=== PATIENT | male | born 1955 | race Caucasian/White ===

== ENCOUNTER 2024-04-12 23:59 | Inpatient (IN) | payer BC, MEDICARE, SELFPAY ==
[2024-04-12 19:29] VITALS: BP 99/48
[2024-04-12 19:48] LABS: % Basophils 0.2 % (0-2); % Immature Granulocytes 0.6 % (0-0.5); % Lymphocytes 5.7 % (20.5-51.1); % Monocytes 9.2 % (1.7-9.3); % Neutrophils 84.3 % (42.2-75.2); Absolute Immature Granulocytes 0.1 10^3/uL (0-0.05); Absolute Lymphocytes 0.6 10^3/uL (1.2-3.4); Absolute Monocytes 0.9 10^3/uL (0.1-0.6); Absolute Neutrophils 8.4 10^3/uL (1.4-6.5); Hematocrit 44.2 % (39.0-52.0); Hemoglobin 15.3 g/dL (13.0-18.0); Mean Corp Hgb Conc. 34.6 g/dL (33.0-37.0); Mean Corpuscular Hgb 30.9 pg (27.0-31.0); Mean Corpuscular Volume 89.3 fL (80.0-94.0); Mean Platelet Volume 12.6 fL (7.4-10.4); Nucleated Red Blood Cells % 0 % (-); Platelet Count 153 10^3/uL (130-400); Red Blood Cell Count 4.95 10^6/uL (4.70-6.10); Red Cell Dist. Width 13.7 % (11.5-14.5)
[2024-04-12 20:12] LABS: ALT (SGPT) 37 U/L (0-50); AST (SGOT) 65 U/L (17-59); Albumin 3.3 g/dl (3.5-5.0); Alkaline Phosphatase 101 U/L (38-126); Blood Urea Nitrogen 26 mg/dl (9-20); Calcium 8.6 mg/dl (8.4-10.2); Carbon Dioxide 26 mmol/L (22-30); Chloride 102 mmol/L (98-107); Glucose 118 mg/dl (70-99); Potassium 3.7 mmol/L (3.5-5.1); Sodium 138 mmol/L (135-145); Total Protein 5.9 g/dl (6.3-8.2); eGFR 54.41
[2024-04-12 20:13] LABS: COVID-19 Antigen Negative (Negative)
--- NOTE | 2024-04-12 22:26 | ED.GENMED ---
History of Present Illness
General
Chief Complaint: Change in Mental Status
Source: patient
Exam Limitations: none
Time Seen by Provider: 04/12/24 22:10
History of Present Illness
History of Present Illness:
This is a 69 year old male that comes in with c/o fatigue. States that on Friday he played golf and then went [facility] with his . States that he felt lightheaded and he didn't drink. States that on Friday, Friday and Friday he slept
all day. States that he is not eating. and he just didn't want to get OOB. States that he was sweating when he was in bed and doesn't know if he had a fever. States that he has a headache with slight Dizziness. Denies any fever, chills, chest pain,
SOB, abd pain, nausea, vomiting, diarrhea, urinary burning.
Past History
Past History
ED Past Medical History: Cancer (Prostate CA), Hypercholesterolemia and Other (Salmeron's Palsey, )
ED Past Surgical History: Urological (Prostatectomy)
Social History
Tobacco: Smoker
Alcohol: None
Personal:
Living: with family
Review of Systems
Review of Systems
All Other Systems: ROS reviewed and negative except as documented in HPI and ROS
Constitutional: Reports night sweats; Denies fever or chills
EENT: Reports no symptoms
Respiratory: Reports no symptoms; Denies cough or trouble breathing
Cardiac: Reports no symptoms; Denies chest pain
ABD/GI: Reports no symptoms; Denies abdominal pain, nausea, vomiting or diarrhea
: Reports no symptoms; Denies dysuria, frequency or urgency
Musculoskeletal: Reports no symptoms
Skin: Reports no symptoms
Neurological: Reports dizzy (Slight) and headache
Psychiatric: Reports no symptoms
Phy Exam
General Physical Exam
General Presentation: well appearing and no apparent distress
General age: appears stated age
General Skin: warm and dry
General Habitus: normal
General Mental: alert
General Hydration: dry mucous membranes
ENT Exam
ENT Exam: TM's normal, pharynx normal and neck supple
Eye Exam
Eye Exam: EOMI
Cardiovascular Exam
Cardiovascular Exam: regular rate/rhythm, no edema and normal peripheral pulses
Pulmonary Exam
Pulmonary Exam: lungs clear, no respiratory distress, no rales, chest non tender, no crackles, no rhonchi, no wheezing and no cough
Gastrointestinal Exam
Gastrointestinal Exam: normal bowel sounds, non tender, soft, no organomegaly, no pulsatile mass and non distended
Musculoskeletal Exam
Musculoskeletal Exam: full ROM and no edema
Skin Exam
Skin Exam: normal color, warm/dry, no rash and no petechia
Psychiatric Exam
Psychiatric Exam: normal mood/affect
Course
Orders/Labs/Results
Orders:
Orders
04/12/24 19:34
COVID-19 Antigen Urgent
Source: Nasal Swab
Complete Blood Count/With Diff Urgent
Comprehensive Metabolic Panel Urgent
Influenza A+B Rapid Molecular Urgent
JODI Source: Nasal Swab
Specimen Description:
04/12/24 22:25
CT Head W/o Iv Contrast Urgent
Comment:
Reason For Exam: Headache, dizziness
Urinalysis Reflex To Culture Urgent
CR Chest - 2 Views Urgent
Comment:
Reason For Exam: fatigue, lightheaded
04/12/24 22:26
0.9% Sodium Chloride 1000 ml [Nss] 1,000 ml IV BOLUS
Acetaminophen [Tylenol] 1,000 mg PO NOW STA
Ketorolac [Toradol] 15 mg IV NOW STA
Abnormal Lab Results
04/12/24
19:34
MPV 12.6 H fL
(7.4-10.4)
Abs Immat Gran (auto) 0.1 H 10^3/uL
(0-0.05)
Absolute Neuts (auto) 8.4 H 10^3/uL
(1.4-6.5)
Absolute Lymphs (auto) 0.6 L 10^3/uL
(1.2-3.4)
Absolute Monos (auto) 0.9 H 10^3/uL
(0.1-0.6)
Immature Gran % 0.6 H %
(0-0.5)
Neutrophils % 84.3 H %
(42.2-75.2)
Lymphocytes % 5.7 L %
(20.5-51.1)
BUN 26 H mg/dl
(9-20)
Creatinine 1.4 H mg/dL
(0.7-1.3)
Glucose 118 H mg/dl
(70-99)
AST 65 H U/L
(17-59)
Total Protein 5.9 L g/dl
(6.3-8.2)
Albumin 3.3 L g/dl
(3.5-5.0)
04/12/24 19:34
04/12/24 19:34
Dehydration, Hyperglycemia. AST mildly elevated. Total protein slightly low. Albumin slighlt low. COVID and Influenza negative.
Vital Signs
Initial and Last Documented VS:
Initial Vital Signs
Temp Pulse Resp
98.4 F 80 18
04/12/24 19:24 04/12/24 19:24 04/12/24 19:24
Last Documented Vital Signs
Temp Pulse Resp BP
98.4 F 80 18 99/48
04/12/24 19:24 04/12/24 19:24 04/12/24 19:24 04/12/24 19:29
MDM/Problems Addressed
Differential Diagnosis Includes:
Viral syndrome. UTI,
MDM/Problems Addressed:
This is a 69 year old male that comes in with c/o fatigue. States that he has slept for three days and did not fell like getting out of bed. States that he has not had an appetite and has a headache with slight Dizziness.
Will check labs,. CT head. Give IV fluids, urine and medicate for headache pain.
Back into see patient. Patient was hypoxic at 89% on room air. O2 started at 2 liters. Explained to patient that he has a severe right upper lobe Pneumonia. Will start patient on antibiotics and admit. Hospitalist notified,
Chronic conditions affecting care:
NA
Acute Exacerbation and/or Progression of Chronic Illness:
NA
*Radiology
Radiology exam reviewed: radiology read reviewed (CT head-There are no focal or acute intracranial abnormalities. There is mild cortical and cerebellar atrophy. Chest-Severe right upper lobe Pneumonia. )
*Pulse Oximetry
Patient hypoxic: no (95% on room air)
*Aquatic Performer Interpretation
Rate: normal
Heart Rate: 91
Rhythm: sinus and PAC's
*Critical Care Note
Total Time (30-74mins, 75-104mins- exclusive of procedures): Not Applicable
ED Attending Note
-
Portions of this chart may have been created with voice recognition software.� Occasional wrong word or��sound alike� substitutions may have occurred due to the inherent limitations of voice recognition software.
Discharge Plan
Departure
Patient Disposition: Admit
Date of Disposition: 04/12/24
Time of Disposition: 23:33
Admit to: Telemetry
Presentation/result/management discussed w/ accepting MD/DO: Hospitalist
Patient with high blood pressure during this ER visit?: No
Condition: Good
Covid-19: Negative COVID-19
Discharge Problem:
Right upper lobe pneumonia
Referrals:
Marci Engle CRNP [Family Provider] -
Interventions
Interventions:
*Risk Screen - Suicide Last Done: 04/12/24 19:24
*General Assessment Last Done: 04/12/24 19:24
*Neglect/Abuse Screening Last Done: 04/12/24 19:24
*ED COVID-19 Vaccine History Last Done: 04/12/24 19:24
Discharge Date and Time
Print Language: [place]THER[place] IRISH
[2024-04-12] MEDS: TYLENOL 1000 MG PO (23:55)
[2024-04-12] MEDS: NSS 1000 IV (23:56)
[2024-04-12] MEDS: TORADOL 15 MG IV (23:57)
[2024-04-12] MEDS: ZITHROMAX INFUSION 250 IV (23:57)
[2024-04-12] MEDS: ROCEPHIN 1000 MG IV (23:57)
[2024-04-13] VITALS (11 sets, daily range): BP systolic 90–141; BP diastolic 56–92; PULSE 81–89; O2SAT 94; BMI 23.8; BMI 27.1
--- NOTE | 2024-04-13 00:01 | HPS.HSE ---
Family Physician
-
Family Physician: Marci Engle
Chief Complaint
-
Weakness
History of Present Illness
Patient is a 69y M with PMH significant for prostate cancer and HTN who presents to ED complaining of marked fatigue. Patient states his symptoms started on Friday evening with lightheadedness. He went to bed and slept for much of the day on
Friday and Friday. Patient reports headache, malaise, poor appetite and continued lightheadedness. He was very fatigued and somewhat unsteady on his feet while going to the bathroom. He denies any fall ors syncope. Minimal, non-productive
cough. No known sick contacts.
Patient presented to the ED this evening and was noted to be hypoxemic (89% on room air per verbal ED report).
CXR showed RUL pneumonia.
Medical History
Past Medical History
Past Medical History: Reports Other
Additional Past Medical History:
Prostate Cancer s/p Surgery, XRT and Hormone Therapy
Hypertension
Past Surgical History: Reports Other
Additional Past Surgical History:
Prostatectomy
Lipoma Excision
Hernia repair
R Achilles Repair
Social History
Tobacco: Non-smoker
Alcohol: None
Drug: None
Family History
Family History: Not pertinent
Allergies / Home Medications
Allergies reflects when Allergies were last updated in [employer].
Home Medications with original date entered in [employer]
Allergy/Medication List:
Allergies
Allergy/AdvReac Type Severity Reaction Status Date / Time
NKA - No Known Allergies Allergy Uncoded 10/29/07 17:56
Home Medications
abiraterone 250 mg tablet 1,000 mg PO DAILY 04/12/24
amlodipine 5 mg tablet 5 mg PO DAILY 04/12/24
atorvastatin 40 mg tablet 40 mg PO HS 04/12/24
calcium carbonate 1,200 mg PO DAILY 04/12/24
magnesium oxide 400 mg PO DAILY 04/12/24
prednisone 5 mg tablet 5 mg PO DAILY 04/12/24
Review of Systems
-
History Source: Patient
A 12 point ROS was completed and negative except as noted: Yes
Constitutional: Reports Fatigue; Denies Fever or Chills
EENT: Reports Sore Throat
Respiratory: Reports Cough (mild) and Trouble Breathing (with activity)
Cardiac: Denies Chest Pain, Diaphoresis, Palpitations or Syncope
Abdomen/GI: Reports Anorexia; Denies Abdominal Pain, Nausea, Vomiting or Diarrhea
: Denies Dysuria or Frequency
Musculoskeletal: Denies Joint Pain or Edema
Neurological: Reports Headache
Psych: Denies Depression or Anxiety
Physical Exam
Vital Signs
Vital Signs
Temp Pulse Resp BP
98.4 F 80 18 99/48
04/12/24 19:24 04/12/24 19:24 04/12/24 19:24 04/12/24 19:29
Physical Exam
General: Other (69y M in no acute distress.)
HEENT: Moist mucous membranes and PERRLA
Respiratory: Other (Rhonchi and Rales over the RUL. Otherwise clear.)
Cardiac: S1/S2 and Irregular Rhythm; No Murmur
GI: Soft, Non Tender, Non Distended and Normal Bowel Sounds
Musculoskeletal: No Clubbing, No Cyanosis and No Edema
Neuro: AO x 3
Laboratory Results
-
04/12/24 19:34
04/12/24 19:34
Laboratory Results
Total Bilirubin 1.0 mg/dl (0.2-1.3) 04/12/24 19:34
AST 65 U/L (17-59) H 04/12/24 19:34
ALT 37 U/L (0-50) 04/12/24 19:34
Alkaline Phosphatase 101 U/L (38-126) 04/12/24 19:34
Impression/Plan
-
A/P: Patient is a 69y M with PMH significant for prostate cancer and hypertension who presents to ED complaining of overwhelming fatigue and weakness x 3 days.
RUL Pneumonia
Acute Hypoxemic Respiratory Insufficiency secondary to the above
- Admit for further evaluation and treatment.
- SpO2 on room air reported at 89% in the ED.
- Dense RUL opacity seen on CXR.
- COVID and influenza negative in the ED.
- Abx with ceftriaxone and doxycycline.
- Supportive care with IVFs, mucolytics, etc.
- Follow for clinical improvement.
- Follow for any new / worsening symptoms.
- Wean off of O2 as able.
DAAYNA v CKD
- SCr = 1.4 with no prior value available for comparison.
- Suspect DAYANA in setting of acute infection / volume contraction.
- IVFs overnight.
- Follow for changes in SCr over the next 48 hours to establish baseline.
Benign Hypertension
- Relatively hypotensive in the ED.
- Hold amlodipine acutely.
- Follow for changes with IVFs / treatment of pneumonia.
Prostate Cancer
- Continue abiraterone and prednisone without changes.
- Follow-up with physicians at [facility] as planned.
DVT Prophylaxis: Lovenox
Code Status: Full
[2024-04-13] MEDS: NSS 1000 IV ×4 (01:22→20:17)
[2024-04-13 06:06] LABS: Hematocrit 38.9 % (39.0-52.0); Hemoglobin 13.5 g/dL (13.0-18.0); Mean Corp Hgb Conc. 34.7 g/dL (33.0-37.0); Mean Corpuscular Hgb 30.3 pg (27.0-31.0); Mean Corpuscular Volume 87.2 fL (80.0-94.0); Mean Platelet Volume 13.1 fL (7.4-10.4); Platelet Count 146 10^3/uL (130-400); Red Blood Cell Count 4.46 10^6/uL (4.70-6.10); Red Cell Dist. Width 13.9 % (11.5-14.5); White Blood Cell Count 9.8 10^3/uL (4.8-10.8)
[2024-04-13 06:26] LABS: AST (SGOT) 63 U/L (17-59); Albumin 2.7 g/dl (3.5-5.0); Alkaline Phosphatase 85 U/L (38-126); Blood Urea Nitrogen 35 mg/dl (9-20); Calcium 7.9 mg/dl (8.4-10.2); Carbon Dioxide 24 mmol/L (22-30); Chloride 107 mmol/L (98-107); Estimated Creatinine Clearance 51 ml/min; Glucose 99 mg/dl (70-99); Potassium 3.5 mmol/L (3.5-5.1); Sodium 140 mmol/L (135-145); Total Bilirubin 0.5 mg/dl (0.2-1.3); eGFR 54.41
[2024-04-13 06:36] LABS: ALT (SGPT) 38 U/L (0-50); Magnesium 2.3 mg/dl (1.6-2.3)
[2024-04-13] MEDS: PROTONIX 40 MG PO (07:51)
[2024-04-13] MEDS: VIBRAMYCIN 100 MG PO ×2 (07:51→20:17)
[2024-04-13] MEDS: MUCINEX 1200 MG PO ×2 (07:51→20:17)
[2024-04-13] MEDS: DELTASONE 5 MG PO (08:00)
--- NOTE | 2024-04-13 08:54 | CM ---
Patient seen at bedside with physician. Patient stated that he lived with his in a 2 story home. Patient has no home DME and has no home O2. 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 Patient PCP is Dr. Engle and he uses the [facility] in [place].
Patient stated that he plans for discharge home with and possible VN pending physician assessment. CM will continue to follow for discharge planning needs.
Plan; home with no needs vs home with VN.
--- NOTE | 2024-04-13 09:03 | W.PN.HOSP.TC ---
Today's Communication/Plan
-
cont ABX/IVF
wean O2 to off
Assessment / Plan
Assessment / Plan
pt is a 69 year old male
Acute Hypoxemic Respiratory Insufficiency due to acute RUL PNA--89% on room air--Covid/flu negative--likely CAP--cont rocephin/doxy--follow CXR--consider pulm consult if no improvement--wean O2 to off
DAYANA vs CKD--SCr = 1.4 with no prior value available for comparison--follow with hydration--cont IVF today
Essential Hypertension--Relatively hypotensive in the ED--agree with holding amlodipine
H/o Prostate Cancer--Continue abiraterone and prednisone without changes (watch for need for stress dose steroids if BP does not respond to IVF)-- Follow-up with physicians at [facility] as planned.
DVT Prophylaxis: Lovenox
Code Status: Full
Anticipated Discharge: 24 - 48 hours
Subjective/Interval History
-
Date of Service: April 13, 2024
pt feeling better than on admission
Objective Data
-
Labs:
Laboratory Results
04/13/24
05:12
WBC 9.8
Hgb 13.5
Hct 38.9 L
Plt Count 146
Sodium 140
Potassium 3.5
Chloride 107
Carbon Dioxide 24
BUN 35 H
Creatinine 1.4 H
Glucose 99
Calcium 7.9 L
Total Bilirubin 0.5
AST 63 H
ALT 38
Alkaline Phosphatase 85
Vital Signs:
max temp for 24 hours
04/12/24
19:24
Temp 98.4 F
Vital Signs
Temp Pulse Resp BP Pulse Ox
98.0 F 75 19 102/62 96
04/13/24 08:21 04/13/24 08:21 04/13/24 08:21 04/13/24 08:21 04/13/24 08:21
I&O
04/12/24 04/13/24 04/14/24
06:59 06:59 06:59
Intake Total 0 / 1729
Balance 1729
Review of Systems
-
All other systems: Reviewed and negative
Physical Exam
-
General: Well Developed, Well Nourished and No Apparent Distress
HEENT: Normocephalic, Atraumatic and Oxygen
Respiratory: Rhonchi (right upper lobe)
Cardiac: Regular Rhythm and S1/S2; Negative Murmur
GI: Soft, Nontender, Nondistended and Normal Bowel Sounds
Musculoskeletal: No Clubbing, No Cyanosis and No Edema
Neuro: Awake and Alert
Psych: Calm
[2024-04-13] MEDS: LOVENOX 40 MG SC (17:09)
[2024-04-13] MEDS: TYLENOL 650 MG PO (17:30)
--- NOTE | 2024-04-13 19:15 | PTCARENOTE ---
Recieved patient form ED. AAOx3. Oriented to unit.
[2024-04-13] MEDS: NON-FORMULARY ITEM 1000 MG PO (20:15)
[2024-04-13] MEDS: LIPITOR 40 MG PO (20:17)
[2024-04-13] MEDS: NON-FORMULARY ITEM PO (20:18)
[2024-04-13] MEDS: STERILE WATER FOR INJECTION 10 ML IV (23:47)
[2024-04-13] MEDS: ROCEPHIN 1000 MG IV (23:47)
[2024-04-14] VITALS (8 sets, daily range): BP systolic 120–148; BP diastolic 74–95; PULSE 75–91; BMI 27.5
[2024-04-14] MEDS: TYLENOL 650 MG PO (04:34)
[2024-04-14] MEDS: ROBITUSSIN DM 5 ML PO (05:15)
[2024-04-14] MEDS: NSS 1000 IV (05:35)
--- NOTE | 2024-04-14 08:23 | W.PN.HOSP.TC ---
Addendum entered and electronically signed by Yen Bertrand MD 04/14/24 20:17:
I saw and evaluated the patient independently. I reviewed the resident�s note and agree with findings and plan as documented by Dr. Rivera.
GENERAL: well developed, well nourished, male in no apparent distress
HEENT: NC/AT
HEART: regular rate and rhythm, +S1, +S2
LUNGS :crackles in RUL improving
ABDOM: soft, nontender, nondistended, + bowel sounds
EXT: no cyanosis, clubbing, or edema
NEUROLOGIC: nonfocal
Acute Hypoxemic Respiratory Insufficiency due to acute RUL PNA--89% on room air, now off O2--Covid/flu negative--likely CAP--cont rocephin/doxy--follow CXR, will need to repeat as outpt to ensure resolution--consideration for quinolone at d/c--urine
legionella pending
DAYANA vs CKD--SCr = 1.4 with no prior value available for comparison--now normal with hydration --stop IVF
Essential Hypertension--Relatively hypotensive in the ED--agree with holding amlodipine--resolved--can restart amlodipine
H/o Prostate Cancer--Continue abiraterone and prednisone without changes (watch for need for stress dose steroids if BP does not respond to IVF)-- Follow-up with physicians at [facility] as planned.
DVT Prophylaxis: Lovenox
Code Status: Full
anticipate d/c in AM
Original Note:
Today's Communication/Plan
-
Continue Abx.
Assessment / Plan
Assessment / Plan
IMPRESSION/PLAN
#Acute Hypoxemic Respiratory Insufficiency secondary to Right Upper Lobe Pneumonia
-O2 sat 96% on 2L
-Covid/flu negative-
-likely CAP
-cont rocephin/doxy
-follow CXR
-wean O2 to off
-PT
-Urine Legionella pending.
-EKG with normal QTC
#DAYANA vs CKD--SCr = 1.4 onpresentation with no prior value available for comparison-
-Cre level improved with IVF, now 1.0
-d/c IV fluids today
-Monitor BMP
#Essential Hypertension-
-Relatively hypotensive in the ED-
-BP stable with IV fluids.
-Monitor BP off IV Fluids.
-Continue Holding Amlodipine.
#H/o Prostate Cancer-
-Continue abiraterone and prednisone without changes (watch for need for stress dose steroids if BP does not respond to IVF)-- Follow-up with physicians at [facility] as planned.
DVT Prophylaxis: Lovenox
Code Status: Full
Anticipated Discharge: Within 24 hours
Subjective/Interval History
-
Patient seen and examined at bedside. Reports improvement in symptoms. Denies shortness of breath. denies chest pain.
Objective Data
-
Labs:
Laboratory Results
04/14/24
08:05
WBC Pending
Hgb Pending
Hct Pending
Plt Count Pending
Sodium Pending
Potassium Pending
Chloride Pending
Carbon Dioxide Pending
BUN Pending
Creatinine Pending
Glucose Pending
Calcium Pending
Total Bilirubin Pending
AST Pending
ALT Pending
Alkaline Phosphatase Pending
Vital Signs:
Vital Signs
Temp Pulse Resp BP Pulse Ox
98.7 F 81 24 127/82 96
04/14/24 07:30 04/14/24 07:30 04/14/24 07:30 04/14/24 07:30 04/14/24 07:30
I&O
04/13/24 04/14/24 04/15/24
06:59 06:59 06:59
Intake Total 1730 / 1730 240 / 240
Output Total 450 / 450
Balance 1730 / 1730 -210 / -210
Review of Systems
-
All other systems: Reviewed and negative (EXCEPT DOCUMENTED)
Physical Exam
-
General: No Apparent Distress
Respiratory: Rhonchi (MILD)
Cardiac: S1/S2
GI: Soft, Nontender and Nondistended
Musculoskeletal: No Edema
Neuro: AO x 3
Psych: Calm
[2024-04-14 08:29] LABS: Hematocrit 39.6 % (39.0-52.0); Hemoglobin 13.6 g/dL (13.0-18.0); Mean Corp Hgb Conc. 34.3 g/dL (33.0-37.0); Mean Corpuscular Hgb 30.8 pg (27.0-31.0); Mean Corpuscular Volume 89.6 fL (80.0-94.0); Mean Platelet Volume 12.9 fL (7.4-10.4); Platelet Count 158 10^3/uL (130-400); Red Blood Cell Count 4.42 10^6/uL (4.70-6.10); Red Cell Dist. Width 14.3 % (11.5-14.5); White Blood Cell Count 8.7 10^3/uL (4.8-10.8)
[2024-04-14] MEDS: NON-FORMULARY ITEM 1000 MG PO (08:44)
[2024-04-14] MEDS: DELTASONE 5 MG PO (08:44)
[2024-04-14] MEDS: VIBRAMYCIN 100 MG PO ×2 (08:44→22:18)
[2024-04-14] MEDS: PROTONIX 40 MG PO (08:44)
[2024-04-14 09:31] LABS: ALT (SGPT) 87 U/L (0-50); AST (SGOT) 132 U/L (17-59); Albumin 2.7 g/dl (3.5-5.0); Alkaline Phosphatase 154 U/L (38-126); Blood Urea Nitrogen 25 mg/dl (9-20); Calcium 8.3 mg/dl (8.4-10.2); Carbon Dioxide 24 mmol/L (22-30); Chloride 106 mmol/L (98-107); Estimated Creatinine Clearance 77 ml/min; Glucose 110 mg/dl (70-99); Magnesium 2.1 mg/dl (1.6-2.3); Potassium 3.2 mmol/L (3.5-5.1); Sodium 141 mmol/L (135-145); Total Bilirubin 0.6 mg/dl (0.2-1.3); Total Protein 5.1 g/dl (6.3-8.2); eGFR > 60.00
[2024-04-14] MEDS: KCL 40 MEQ PO (10:09)
--- NOTE | 2024-04-14 13:44 | CM ---
Patient seen at bedside with physician and resident. Patient states that he is feeling better and completed IMM form which was placed on chart. Patient plan is to go home with and no needs for VN. CM will continue to follow for discharge
planning needs.
Plan; home with family; follow up with PCP
[2024-04-14] MEDS: LOVENOX 40 MG SC (17:07)
[2024-04-14] MEDS: LIPITOR 40 MG PO (22:18)
[2024-04-15] MEDS: STERILE WATER FOR INJECTION 10 ML IV (00:14)
[2024-04-15] MEDS: ROCEPHIN 1000 MG IV (00:14)
[2024-04-15 03:29] VITALS: BP 122/83
[2024-04-15 06:00] VITALS: BMI 27.4
--- NOTE | 2024-04-15 07:04 | W.DCSUMMARY ---
Addendum entered and electronically signed by Yen Bertrand MD 04/15/24 19:37:
Read, reviewed, and agree. See same day progress note for additional details. Time spent coordinating care, DC planning, review of DC plan of care with resident, transition of care, review of records in EMR, med rec, consults, notes, d/w
consultants, nursing, family, and CM = 30 minutes
Original Note:
Discharge Summary
Discharge Data
Date of Admission: 04/12/24
Date of Discharge: 04/15/24
Total time spent discharging patient (in min): 30
-
Pending Results: No
Hospital Course
Principal Discharge diagnosis : Acute hypoxemic respiratory insufficiency due to acute right upper lobe community-acquired pneumonia
Chronic Discharge diagnosis : acute kidney injury resolved, essential hypertension, history of prostate cancer
Hospital Course : This is a 69-year-old male with past medical history significant for prostate cancer and hypertension who presented to [facility] ED complaining of fatigue and lightheadedness. In addition he complained of headaches, malaise, poor
appetite and unsteadiness on his feet. On presentation to the ER, patient was febrile, hypotensive with O2 sats 89% on room air. Evaluation with chest x-ray showed severe right upper lobe pneumonia. Evaluation with a head CT showed no focal no
acute intracranial abnormalities. Influenza and Legionella urine antigen were negative. Patient was eventually started on antibiotics with ceftriaxone and doxycycline. Supportive care with IVF's, mucolytics and 2 L of oxygen. Throughout course
of his hospital stay, patient's symptoms started improving with antibiotics use. He was eventually weaned off O2 and worked with physical therapy with positive progression. On the day of discharge, there was total improvement in his symptoms
compared to presentation. He will be discharged home on Cefdinir 300mg PO BID x 12 days to complete 2 weeks total, and Doxycycline 100mg PO BID X 7 DAYS to complete 10 days today. In Addition, he should get a repeat CXR in 3 weeks with his PCP.
Essential hypertension; on presentation to the ED, his blood pressure was 90/56 which improved with IV fluids. His amlodipine for hypertension was held, but will be continued on discharge
Acute kidney injury; on presentation, is creatinine was 1.4. He was administered IV fluids with creatinine improving to 1.0 on day of discharge.
History of prostate cancer- Continue abiraterone and prednisone without changes (watch for need for stress dose steroids if BP does not respond to IVF)-- Follow-up with physicians at [facility] as planned.
Discharge Plan
-
Patient Disposition: Home (Routine Discharge)
Discharge Diagnosis/Procedures: Acute hypoxemic respiratory insufficiency due to acute right upper lobe community-acquired pneumonia, acute kidney injury resolved, essential hypertension, history of prostate cancer
Condition: Good
Diet: As tolerated
Activity: As tolerated
Driving Restrictions: As prior to admission
Bathing Restrictions: None
Others Tests: Chest Xray as an outpatient in 3 weeks with your PCP
Referrals:
Marci Engle CRNP [Family Provider] - in less than 1 week
Additional Discharge Medication Instructions: Cefdinir 300mg PO BID x 12 days to complete 2 weeks total, and Doxycycline 100mg PO BID X 7 DAYS to complete 10 days
Prescriptions:
New
doxycycline hyclate 100 mg Capsule
100 mg PO Q12 Qty: 14 0RF
cefdinir 300 mg capsule
300 mg PO BID Qty: 24 0RF
Continued
calcium carbonate 600 mg calcium (1,500 mg) Tablet
1,200 mg PO DAILY
magnesium oxide 400 mg magnesium Tablet
400 mg PO DAILY
atorvastatin 40 mg Tablet
40 mg PO HS Qty: 0 0RF
prednisone 5 mg Tablet
5 mg PO DAILY Qty: 0 0RF
amlodipine 5 mg Tablet
5 mg PO DAILY Qty: 0 0RF
abiraterone 250 mg Tablet
1,000 mg PO DAILY Qty: 0 0RF
Discharge Orders:
Discharge Patient (As Directed); Ordered 04/15/24
Ordered By: Elma Rivera
Discharge Date and Time
Print Language: SLOVAK
[2024-04-15 07:41] VITALS: BP 136/71
--- NOTE | 2024-04-15 07:56 | W.PN.HOSP.TC ---
Addendum entered and electronically signed by Yen Bertrand MD 04/15/24 19:38:
Error: Urine Legionella antigen was negative
Addendum entered and electronically signed by Yen Bertrand MD 04/15/24 19:35:
I saw and evaluated the patient independently. I reviewed the resident�s note and agree with findings and plan as documented by Dr. Rivera.
GENERAL: well developed, well nourished, male in no apparent distress
HEENT: NC/AT--off O2
HEART: regular rate and rhythm, +S1, +S2
LUNGS: crackles in RUL improving
ABDOM: soft, nontender, nondistended, + bowel sounds
EXT: no cyanosis, clubbing, or edema
NEUROLOGIC: nonfocal
Acute Hypoxemic Respiratory Insufficiency due to acute RUL PNA-- off O2--Covid/flu negative--likely CAP--cont rocephin/doxy--follow CXR, will need to repeat as outpt to ensure resolution--consideration for quinolone at d/c--urine legionella never
sent
DAYANA vs CKD--SCr = 1.4 with no prior value available for comparison--now normal with hydration --stop IVF
Essential Hypertension--Relatively hypotensive in the ED--agree with holding amlodipine--resolved--can restart amlodipine
H/o Prostate Cancer--Continue abiraterone and prednisone without changes no need for stress dose steroids-- Follow-up with physicians at [facility] as planned.
DVT Prophylaxis: Lovenox
Code Status: Full
Original Note:
Today's Communication/Plan
-
Will d/c home today on Cefdinir 300mg PO BID x 12 days to complete 2 weeks total, and Doxycycline 100mg PO BID X 7 DAYS to complete 10 days
-follow CXR as an outpatient in 3 weeks
Assessment / Plan
Assessment / Plan
IMPRESSION/PLAN
#Acute Hypoxemic Respiratory Insufficiency secondary to Right Upper Lobe Pneumonia
-O2 sat 96% on 2L
-Covid/flu negative-
-likely CAP
-cont rocephin/doxy. Will d/c home today on Cefdinir 300mg PO BID x 12 days to complete 2 weeks totay, and Doxycycline 100mg PO BID X 7 DAYS to complete 10 days
-follow CXR as an outpatient in 3 weeks
-weaned off O2
-Urine Legionella negative.
-EKG with normal QTC
#DAYANA vs CKD--SCr = 1.4 onpresentation with no prior value available for comparison-
-Cre level improved with IVF, now 1.0
-d/c IV fluids today
-Monitor BMP
#Essential Hypertension-
-Relatively hypotensive in the ED-
-BP stable with IV fluids.
-Monitor BP off IV Fluids.
-Continue Holding Amlodipine, will resume on D/C
#H/o Prostate Cancer-
-Continue abiraterone and prednisone without changes (watch for need for stress dose steroids if BP does not respond to IVF)-- Follow-up with physicians at [facility] as planned.
DVT Prophylaxis: Lovenox
Code Status: Full
Anticipated Discharge: Today
Subjective/Interval History
-
Patient seen and examined at bedside. Eager to leave the hospital today. Patient without acute complaints.
Objective Data
-
Labs:
Laboratory Results
04/15/24
07:35
WBC Pending
Hgb Pending
Hct Pending
Plt Count Pending
Sodium Pending
Potassium Pending
Chloride Pending
Carbon Dioxide Pending
BUN Pending
Creatinine Pending
Glucose Pending
Calcium Pending
Vital Signs:
Vital Signs
Temp Pulse Resp BP Pulse Ox
99.8 F 87 18 122/83 93
04/15/24 03:29 04/15/24 03:29 04/15/24 03:29 04/15/24 03:29 04/15/24 03:29
I&O
04/14/24 04/15/24 04/16/24
06:59 06:59 06:59
Intake Total 240 / 240 1919
Output Total 450 / 450
Balance -210 / -210 1919
Review of Systems
-
All other systems: Reviewed and negative (EXCEPT DOCUMENTED)
Physical Exam
-
General: No Apparent Distress
Respiratory: Rhonchi (RUL improving, but still present)
Cardiac: S1/S2
GI: Soft, Nontender and Nondistended
Musculoskeletal: No Edema
[2024-04-15] MEDS: VIBRAMYCIN 100 MG PO (08:31)
[2024-04-15] MEDS: NON-FORMULARY ITEM 4 MG PO (08:31)
[2024-04-15] MEDS: DELTASONE 5 MG PO (08:31)
[2024-04-15] MEDS: PROTONIX 40 MG PO (08:31)
[2024-04-15 08:33] LABS: Hematocrit 40.2 % (39.0-52.0); Hemoglobin 13.6 g/dL (13.0-18.0); Mean Corp Hgb Conc. 33.8 g/dL (33.0-37.0); Mean Corpuscular Volume 88.5 fL (80.0-94.0); Mean Platelet Volume 13.4 fL (7.4-10.4); Platelet Count 194 10^3/uL (130-400); Red Blood Cell Count 4.54 10^6/uL (4.70-6.10); Red Cell Dist. Width 14.4 % (11.5-14.5); White Blood Cell Count 7.4 10^3/uL (4.8-10.8)
[2024-04-15 09:10] LABS: Blood Urea Nitrogen 22 mg/dl (9-20); Calcium 8.8 mg/dl (8.4-10.2); Carbon Dioxide 27 mmol/L (22-30); Chloride 109 mmol/L (98-107); Estimated Creatinine Clearance 85 ml/min; Glucose 96 mg/dl (70-99); Potassium 4.3 mmol/L (3.5-5.1); Sodium 144 mmol/L (135-145); eGFR > 60.00
--- NOTE | 2024-04-15 10:20 | CM ---
Patient seen at bedside, Patient for discharge planing needs. CM will continue to follow for discharge planning needs.
Plan; home with no needs.
--- NOTE | 2024-04-15 10:34 | PTCARENOTE ---
pt took his own IV and tele monitor and left the hospital. call the pt to get the DC papers back.
== END 2024-04-15 10:36 | disposition home or self-care (01) | DRG 194 ==
LOC: 4 EAST ACU 23:59
PROVIDERS: Clinical Nurse Specialist Family Health; Student in an Organized Health Care Education/Training Program; ADMITTING PHYSICIAN Hospitalist; ATTENDING PHYSICIAN Internal Medicine; EMERGENCY PHYSICIAN Emergency Medicine; FAMILY PHYSICIAN Nurse Practitioner Adult Health
DX: J18.9 Pneumonia, unspecified organism (principal); N17.9 Acute kidney failure, unspecified; F17.200 Nicotine dependence, unspecified, uncomplicated; R09.02 Hypoxemia; R06.89 Other abnormalities of breathing; I12.9 Hypertensive chronic kidney disease with stage 1 through stage 4 chronic kidney disease, or unspecified chronic kidney disease; N18.9 Chronic kidney disease, unspecified; Z85.46 Personal history of malignant neoplasm of prostate; Z11.52 Encounter for screening for COVID-19
CPT/HCPCS: 70450; 71046; 80048; 80053; 82248; 83605; 83735; 85025; 85027; 87449; 87502; 87811; 93005; 96365; 96375; 97162; 99285; 99406

== ENCOUNTER → 2024-04-28 15:31 | Outpatient (REF) | payer BC, SELFPAY | LOC: HWRAD 15:31 | DX: J18.9 Pneumonia, unspecified organism (principal) | CPT/HCPCS: 71046 ==

== ENCOUNTER → 2024-12-10 07:15 | Outpatient (REF) | payer BC, SELFPAY | LOC: RCS 07:15 | PROVIDERS: ATTENDING PHYSICIAN Internal Medicine Cardiovascular Disease | DX: R60.0 Localized edema (principal) | CPT/HCPCS: 93306 ==